=== PATIENT | female | born 1960 | race Caucasian/White ===

== ENCOUNTER 2020-09-07 16:15 | Emergency (ER) | payer MEDICAID ==
[2020-09-07 16:21] VITALS: BP 142/60
[2020-09-07] MEDS ORDERED: CHERRY SYRUP 10 ML UDC PO ONE (16:47)
[2020-09-07] MEDS ORDERED: DEXAMETHASONE 10 MG/ML VIAL PO STA (16:47)
--- NOTE | 2020-09-07 16:50 | ED Physician Documentation ---
History of Present Illness - Stated complaint Stated Complaint: DIZZY - Chief complaint Chief Complaint: Heent - History obtained from History obtained from: Patient - History of Present Illness Timing: How many days ago (4) - Additonal information Additional information: 60-year-old female with a history of vertigo has developed symptoms of vertigo about 4 days ago. She has some dizziness with head turning and she felt that she had some nasal congestion and took some DayQuil which seemed to help slightly. She is worried she might have some type of a sinus infection or something causing this irritation. Review of Systems Constitutional: denies: Fever, Chills, Myalgias Eyes: denies: Decreased vision Ears: reports: Tinnitus/ringing. denies: Ear pain Nose: reports: Congestion Throat: denies: Sore throat Cardiac: denies: Chest pain / pressure, Palpitations Respiratory: denies: Dyspnea, Cough GI: reports: Nausea. denies: Vomiting : denies: Dysuria, Frequency Skin: denies: Rash Musculoskeletal: denies: Neck pain, Back pain, Extremity pain Neurologic: denies: Generalized weakness, Focal weakness, Numbness, Headache, Head injury PD PAST MEDICAL HISTORY - Present Medications Home Medications: Ambulatory Orders Medication Instructions Recorded Confirmed Amox/Clav 875/125 [Augmentin] 1 each PO Q12H #20 tablet 09/07/20 Fluticasone [Flonase] 1 sprays CHELSY DAILY 09/07/20 09/07/20 Meclizine HCl [Antivert] 25 mg PO Q6HR PRN #20 tablet 09/07/20 - Allergies Allergies/Adverse Reactions: Allergies Allergy/AdvReac Type Severity Reaction Status Date / Time No Known Drug Allergies Allergy Verified 09/07/20 16:21 PD ED PE NORMAL - Vitals Vital signs reviewed: Yes (hypertensive ) - General General: Alert and oriented X 3, No acute distress, Well developed/nourished - HEENT HEENT: Atraumatic, PERRL, EOMI, Pharynx benign, Other (erythema along the umbo bilaterally with rounding. There is minimal nystagmus bilaterally ) - Neck Neck: Supple, no meningeal sign, No bony TTP - Cardiac Cardiac: RRR, No murmur - Respiratory Respiratory: No respiratory distress, Clear bilaterally - Back Back: No CVA TTP, No spinal TTP - Derm Derm: Normal color, Warm and dry, No rash - Extremities Extremities: No deformity, No edema - Neuro Neuro: Alert and oriented X 3, extension specialist 2-12 intact, No motor deficit, No sensory deficit, Normal speech Eye Opening: Spontaneous Motor: Obeys Commands Verbal: Oriented GCS Score: 15 - Psych Psych: Normal mood, Normal affect Results - Vitals Vitals: Vital Signs - 24 hr 09/07/20 16:18 Temperature 36.0 C L Heart Rate 69 Respiratory 16 Rate Blood Pressure 142/60 H O2 Saturation 99 PD MEDICAL DECISION MAKING - ED course Complexity details: considered differential, d/w patient ED course: 60 y/o female with vertigo has OM on exam and is concerned about this possibility. She has minimal nystagmus and minimal symptoms. She is treated with PO decadron and we will place her on a course of antibiotic and meclizine. Departure - Departure Disposition: 01 Home, Self Care Clinical Impression: Labyrinthitis Qualifiers: Laterality: bilateral Qualified Code(s): H83.03 - Labyrinthitis, bilateral Otitis media Qualifiers: Otitis media type: suppurative Chronicity: acute Laterality: bilateral Recurrence: not specified as recurrent Spontaneous tympanic membrane rupture: without spontaneous rupture Qualified Code(s): H66.003 - Acute suppurative otitis media without spontaneous rupture of ear drum, bilateral Condition: Stable Instructions: ED Labyrinthitis, ED Otitis Media Acute Adult Follow-Up: Ric[facility] [Provider Group] Prescriptions: Meclizine HCl [Antivert] 25 mg PO Q6HR PRN #20 tablet PRN Reason: Dizziness Amox/Clav 875/125 [Augmentin] 1 each PO Q12H #20 tablet
== END 2020-09-07 17:20 | disposition home or self-care (01) ==
LOC: ED 16:15
DX: H83.03 Labyrinthitis, bilateral (principal); H66.003 Acute suppurative otitis media without spontaneous rupture of ear drum, bilateral
CPT/HCPCS: 99282; 99284; A9270

== ENCOUNTER 2020-10-14 16:19 | Emergency (ER) | payer MEDICAID ==
--- NOTE | 2020-10-14 17:43 | ED Physician Documentation ---
History of Present Illness - Stated complaint Stated Complaint: DIZZINESS - Chief complaint Chief Complaint: Neuro - History obtained from History obtained from: Patient - History of Present Illness Timing: Today Pain level max: 0 Pain level now: 0 - Additonal information Additional information: 60-year-old female presents to the emergency department complaining of the room spinning around her. Worse with moving her head, better with remaining still. Similar episode last month. Was told she had an ear infection at that time. Was prescribed meclizine. Has not taken anything for this today. No numbness or tingling. No difficulty with speech. No headache. No trauma. No difficulty walking. No fever. No ear pain. No sore throat. No rhinorrhea or congestion. 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 : None HEENT: None Psych: None Musculoskeletal: None Derm: None Other Past Medical History: vertigo - Past Surgical History Past Surgical History: No - Present Medications Home Medications: Ambulatory Orders Medication Instructions Recorded Confirmed Fluticasone [Flonase] 1 sprays CHELSY DAILY 09/07/20 10/14/20 Meclizine HCl [Antivert] 25 mg PO Q6HR PRN #20 tablet 09/07/20 10/14/20 - Allergies Allergies/Adverse Reactions: Allergies Allergy/AdvReac Type Severity Reaction Status Date / Time Sulfa (Sulfonamide Allergy Unknown Verified 10/14/20 16:25 Antibiotics) - Social History Does the pt smoke?: No Smoking Status: Never smoker Does the pt drink ETOH?: Yes Does the pt have substance abuse?: No - Immunizations Immunizations are current?: No Immunizations: TDAP current <10years - POLST Patient has POLST: No PD ED PE NORMAL - Vitals Vital signs reviewed: Yes - General General: Alert and oriented X 3, No acute distress - HEENT HEENT: Atraumatic, PERRL, EOMI, Ears normal, Moist mucous membranes - Neck Neck: Supple, no meningeal sign - Cardiac Cardiac: RRR - Respiratory Respiratory: No respiratory distress, Clear bilaterally - Abdomen Abdomen: Soft, Non tender, Non distended - Derm Derm: Warm and dry, No rash - Extremities Extremities: No edema, No calf tenderness / cord - Neuro Neuro: Alert and oriented X 3, health information tech 2-12 intact, No motor deficit, No sensory deficit, Other (+ hallpike to the R, horizontal nystagmus.) Eye Opening: Spontaneous Motor: Obeys Commands Verbal: Oriented GCS Score: 15 - Psych Psych: Normal mood, Normal affect Results - Vitals Vitals: Vital Signs - 24 hr 10/14/20 10/14/20 16:25 17:49 Temperature 36 C L 37.2 C Heart Rate 69 64 Respiratory 18 16 Rate Blood Pressure 134/60 H 134/92 H O2 Saturation 97 97 Oxygen O2 Source Room air PD MEDICAL DECISION MAKING - ED course Complexity details: reviewed old records, considered differential, d/w patient ED course: Patient with what appears to be BPPV. No evidence of stroke. Normal cerebellar test. Normal gait. We will place on meclizine for home. Patient will follow up with her doctor for further care. Patient counseled regarding signs and symptoms for which I believe and urgent re-evaluation would be necessary. Patient with good understanding of and agreement to plan and is comfortable going home at this time This document was made in part using voice recognition software. While efforts are made to proofread this document, sound alike and grammatical errors may occur. Departure - Departure Disposition: 01 Home, Self Care Clinical Impression: BPPV (benign paroxysmal positional vertigo) Qualifiers: Laterality: right Qualified Code(s): H81.11 - Benign paroxysmal vertigo, right ear Condition: Good Instructions: ED BPV Vertigo Follow-Up: Your,doctor in 1 week [Other] Comments: You can use the meclizine at home as previously prescribed. Return if you worsen. You can try the half somersault maneuver as well as the Josie maneuver at home. Instructions for these can be found on YouTube. Your right ear appears affected today. Discharge Date/Time: 10/14/20 17:50
[2020-10-14 17:50] VITALS: BP 134/92
== END 2020-10-14 17:50 | disposition home or self-care (01) ==
LOC: ED 16:19
DX: H81.11 Benign paroxysmal vertigo, right ear (principal)
CPT/HCPCS: 99281; 99283

== ENCOUNTER 2020-10-19 15:23 | Emergency (ER) | payer MEDICAID ==
[2020-10-19 15:29] VITALS: BP 132/67
--- NOTE | 2020-10-19 15:44 | ED Physician Documentation ---
History of Present Illness - Stated complaint Stated Complaint: PRESCRIPTION REFILL - Chief complaint Chief Complaint: General - History obtained from History obtained from: Patient - Additonal information Additional information: She ran out of her meclizine and is here requesting a refill. No acute complaints otherwise. 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 : None HEENT: None Psych: None Musculoskeletal: None Derm: None - Past Surgical History Past Surgical History: No - Present Medications Home Medications: Ambulatory Orders Medication Instructions Recorded Confirmed Fluticasone [Flonase] 1 sprays CHELSY DAILY 09/07/20 10/14/20 Meclizine HCl [Antivert] 25 mg PO Q6HR PRN #20 tablet 09/07/20 10/14/20 Meclizine HCl [Antivert] 25 mg PO Q6H PRN #30 10/19/20 - Allergies Allergies/Adverse Reactions: Allergies Allergy/AdvReac Type Severity Reaction Status Date / Time Sulfa (Sulfonamide Allergy Unknown Verified 10/19/20 15:30 Antibiotics) - Social History Does the pt smoke?: No Smoking Status: Never smoker Does the pt drink ETOH?: Yes Does the pt have substance abuse?: No - Immunizations Immunizations are current?: No Immunizations: TDAP current <10years - POLST Patient has POLST: No PD ED PE NORMAL - Vitals Vital signs reviewed: Yes - General General: Alert and oriented X 3, No acute distress - HEENT HEENT: PERRL, EOMI, Ears normal - Neck Neck: Supple, no meningeal sign, No bony TTP - Neuro Neuro: Alert and oriented X 3, twister tender paper 2-12 intact, No motor deficit, No sensory deficit, Normal speech Results - Vitals Vitals: Vital Signs - 24 hr 10/19/20 15:26 Temperature 36.4 C L Heart Rate 78 Respiratory 17 Rate Blood Pressure 132/67 H O2 Saturation 98 Oxygen O2 Source Room air Departure - Departure Disposition: 01 Home, Self Care Clinical Impression: BPPV (benign paroxysmal positional vertigo) Condition: Good Record reviewed to determine appropriate education?: Yes Prescriptions: Meclizine HCl [Antivert] 25 mg PO Q6H PRN #30 PRN Reason: Vertigo
== END 2020-10-19 15:50 | disposition home or self-care (01) ==
LOC: ED 15:23
DX: H81.10 Benign paroxysmal vertigo, unspecified ear (principal); Z76.0 Encounter for issue of repeat prescription
CPT/HCPCS: 99282; 99283

== ENCOUNTER 2021-09-30 08:00 | Outpatient (CLI) | payer MEDICAID ==
[2021-09-30 19:58] LABS: BILIRUBIN,URINE NEGATIVE (NEGATIVE); GLUCOSE, URINE (UA) NEGATIVE (NEGATIVE); KETONES,URINE (UA) NEGATIVE (NEGATIVE); LEUKOCYTE ESTERASE, URINE NEGATIVE (NEGATIVE); NITRITE,URINE NEGATIVE (NEGATIVE); OCCULT BLOOD,URINE NEGATIVE (NEGATIVE); PH,URINE 5.5 PH (5.0-7.5); PROTEIN,URINE NEGATIVE (NEGATIVE); UROBILINOGEN,URINE 0.2 (NORMAL) E.U./dL (NORMAL)
[2021-09-30 20:23] LABS: BACTERIA,URINE Rare /HPF (None Seen); CLARITY,URINE CLEAR (CLEAR); RBC,URINE 0-5 /HPF (0-5); SQUAMOUS EPITHELIAL CELL,UR RARE Squamous (<= Few)
== END 2021-09-30 23:59 ==
LOC: LAB 08:00
PROVIDERS: ATTEND Physician Assistant Medical
DX: R39.15 Urgency of urination (principal)
CPT/HCPCS: 81001; 87086